=== PATIENT | male | born 1960 | race Caucasian/White ===

== ENCOUNTER → 2024-04-18 10:30 | Outpatient (REF) | payer OTHER, SELFPAY | LOC: HWRAD 10:30 | PROVIDERS: ATTENDING PHYSICIAN Family Medicine | DX: R22.2 Localized swelling, mass and lump, trunk (principal) | CPT/HCPCS: 71046; 71100; 71120 ==

== ENCOUNTER → 2025-06-11 15:00 | Outpatient (REF) | payer OTHER, MEDICARE, SELFPAY | LOC: RAD 15:00 | PROVIDERS: ATTENDING PHYSICIAN Physician Assistant Medical; FAMILY PHYSICIAN Family Medicine | DX: R05.1 Acute cough (principal) | CPT/HCPCS: 71046 ==